=== PATIENT | male | born 1955 | race Caucasian/White ===

== ENCOUNTER → 2018-02-14 | Outpatient (CLI) | payer OTHER ==
--- NOTE | 2018-02-14 15:19 | XR ---
EXAMINATION TYPE: XR lumbosacral spine min 4V DATE OF EXAM: 02/14/2018 COMPARISON: NONE HISTORY: Low back pain TECHNIQUE: Five-view lumbar spine FINDINGS: Vertebral body alignment is normal. Disc heights are preserved. Vertebral body heights are preserved. Mild facet degenerative changes present L4-5 L5-S1. No spondylolytic defects are evident. IMPRESSION: 1. Mild facet degenerative change in an otherwise normal 5 view lumbar spine
--- NOTE | 2018-02-14 15:20 | XR ---
EXAMINATION TYPE: XR Hip Bilateral Complete DATE OF EXAM: 02/14/2018 COMPARISON: NONE HISTORY: Low back pain, bilateral hip pain TECHNIQUE: Bilateral hips 2 views each FINDINGS: Femoral heads articulate with the acetabulum. No acute fractures are evident. Joint spaces are preserved. IMPRESSION: 1. Normal bilateral hips.
== END | disposition home or self-care (01) ==
LOC: RADXRMAIN 14:37
PROVIDERS: ATTEND Nurse Practitioner Women's Health
DX: M47.816 Spondylosis without myelopathy or radiculopathy, lumbar region (principal); M25.551 Pain in right hip; M25.552 Pain in left hip
CPT/HCPCS: 72110; 73521

== ENCOUNTER → 2018-08-21 | Outpatient (CLI) | payer OTHER ==
--- NOTE | 2018-08-21 21:05 | MR ---
EXAMINATION TYPE: MR lumbar spine wo con DATE OF EXAM: 08/21/2018 COMPARISON: Plain film 02/14/2018 and prior lumbar MRI dated 10/15/2013 HISTORY: LBP, lt hip pain TECHNIQUE: Multiplanar, multisequence images of the lumbar spine were acquired. L1-L2: No central stenosis or foraminal encroachment. No evident disc herniation. L2-L3: Facet arthropathy is present with no significant central stenosis, foraminal encroachment, or sizable disc herniation. L3-L4: Posterior broad-based disc bulge causes only slight anterior mass effect on the thecal sac. No significant foraminal encroachment. There is some facet arthropathy change. L4-L5: Facet arthropathy is marked hypertrophic changes causing some posterior lateral mass effect on the thecal sac, trefoil appearance of the thecal sac. There is posterior broad-based disc bulge caus es slight anterior mass effect on the thecal sac. Circumferential extension of endplate disc complex encroaches somewhat on the foramina. No significant central stenosis. L5-S1: No significant central canal stenosis or foraminal encroachment. No spondylolysis. Only minima l posterior disc bulge contacts the anterior thecal sac. Lumbar segments are intact. No paraspinal masses are identified. Conus medullaris has a normal appe arance. Lumbar vertebral bodies show stable height, alignment, and bone marrow signal, there is multi level spondylosis with endplate discogenic marrow signal change. Loss of disc height signal is greate st at L3-4, L1-2 compatible with disc desiccation and degenerative disc disease. IMPRESSION: Degenerative disc disease and facet arthropathy are similar to prior MRI.
== END ==
LOC: RADMRIMAIN 16:46
PROVIDERS: ATTEND Family Medicine
DX: M51.36 Other intervertebral disc degeneration, lumbar region (principal); M46.96 Unspecified inflammatory spondylopathy, lumbar region
CPT/HCPCS: 72148

== ENCOUNTER → 2019-03-25 | Outpatient (CLI) | payer MEDICARE, OTHER ==
--- NOTE | 2019-03-25 08:40 | MR ---
EXAMINATION TYPE: MR lumbar spine wo con DATE OF EXAM: 03/25/2019 COMPARISON: 08/21/2018 HISTORY: Low back pain / Radiculopathy TECHNIQUE: T1 and T2 axial and sagittal images of the lumbar spine are submitted. FINDINGS: There is no abnormal signal seen within the visualized spinal cord or paraspinal soft tissu es. There is a left adrenal nodule. L1-L2: No central stenosis or foraminal encroachment. No evident disc herniation. Disc desiccation no nish. Chronic deformity of the inferior endplate L1. L2-L3: Facet arthropathy is present with no significant central stenosis, foraminal encroachment, or sizable disc herniation. L3-L4: Posterior broad-based disc bulge causes only slight anterior mass effect on the thecal sac. No significant foraminal encroachment. Stable facet arthropathy. L4-L5: Advanced facet arthropathy changes causing some posterior lateral mass effect on the thecal sa c, trefoil appearance of the thecal sac. There is posterior broad-based disc bulge causes slight ante rior mass effect on the thecal sac. Circumferential extension of endplate disc complex encroaches rashawn ewhat on the foramina. Mild canal central stenosis. L5-S1: No significant central canal stenosis or foraminal encroachment. No spondylolysis. Only minima l posterior disc bulge contacts the anterior thecal sac. Facet arthropathy noted. IMPRESSION: 1. Stable multilevel degenerative disc disease with multilevel facet arthropathy. Disc bulging and hy pertrophic changes L4-5 results in mild canal stenosis and bilateral foraminal encroachment. 2. Findings suggest a left adrenal nodule measuring 1.[address] scan is recommended.
== END | disposition home or self-care (01) ==
LOC: RADMRIMAIN 07:55
PROVIDERS: ATTEND Family Medicine
DX: M48.061 Spinal stenosis, lumbar region without neurogenic claudication (principal); M51.36 Other intervertebral disc degeneration, lumbar region; M51.86 Other intervertebral disc disorders, lumbar region; M46.96 Unspecified inflammatory spondylopathy, lumbar region
CPT/HCPCS: 72148

== ENCOUNTER → 2019-04-17 | Outpatient (CLI) | payer MEDICARE, OTHER ==
[2019-04-17 08:37] LABS: African American GFR (CKD) >90 (>60 ml/min/1.73 sqM); Blood Urea Nitrogen 15 mg/dL (9-20); Non-African American GFR(CKD) 83 (>60 ml/min/1.73 sqM)
--- NOTE | 2019-04-17 10:38 | CT ---
EXAMINATION TYPE: CT adrenal glands wo/w con ltd DATE OF EXAM: 04/17/2019 COMPARISON: MRI lumbar spine 03/25/2019 HISTORY: 63 year-old male left adrenal mass TECHNIQUE: Contiguous axial scanning of the abdomen before and after IV contrast. Coronal and sagitta l reconstructions performed. The 60 second scan was carried out through the pelvis. CT DLP: 1446 mGycm Automated exposure control for dose reduction was used. FINDINGS: Heart normal size without pericardial effusion. 1.7 cm nodular density medial anterior right base could represent a pulmonary nodule or small pericar diac cyst. Three-month follow-up of the chest recommended to reassess. Small hiatal hernia. No focal liver lesion or biliary ductal dilatation. Portal venous system is allen nt. Gallbladder, right adrenal gland, kidneys, spleen, and pancreas appear within normal limits. With attention to the left adrenal gland, no discrete nodule is identified. The patient's 03/25/2019 MR I is reviewed. Apparent nodule on the axial T2 series seems to correspond to artifact given the curre nt CT findings. No dilated small bowel, free fluid, or free air. Moderate atherosclerotic calcifications infrarenal abdominal aorta and common iliac arteries with mil d arthroscopic narrowing distal right common iliac artery. Normal appendix. Moderate stool burden. Sigmoid diverticulosis. No pericolonic inflammatory change. No mesenteric or retroperitoneal lymphadenopathy. Bladder urine distended with a posterior bladder wall diverticulum measuring 2.2 cm on the left. Pros carr gland is enlarged at 5.0 cm. Patulous bilateral inguinal canals. No abnormal fluid collection in the pelvis or pelvic lymphadenopathy. Pelvic phleboliths. Bones: Mild degenerative change at the hips. Facet arthropathy lower lumbar spine. IMPRESSION: 1. NO ADRENAL NODULE. THE 03/25/2019 MRI IS REVIEWED. IN LIGHT OF THE CURRENT CT FINDINGS, THE QUESTION ED NODULE ON AXIAL T2 SERIES IMAGE 30 SEEMS TO CORRESPOND TO ARTIFACT. 2. A 1.7 CM NODULE AT THE ANTERIOR RIGHT BASE COULD REPRESENT A PULMONARY NODULE OR PERICARDIAC CYST. THREE-MONTH FOLLOW-UP CONTRAST ENHANCED CT CHEST RECOMMENDED TO ENSURE STABILITY. 3. MODERATE STOOL. SMALL HIATAL HERNIA. SIGMOID DIVERTICULOSIS. LEFT POSTERIOR BLADDER WALL DIVERTICU LUM MEASURING 2.2 CM. MILD PROSTATOMEGALY AT 5.0 CM.
== END | disposition home or self-care (01) ==
LOC: RADCTMAIN 08:03
PROVIDERS: ATTEND Family Medicine
DX: K44.9 Diaphragmatic hernia without obstruction or gangrene (principal); K57.30 Diverticulosis of large intestine without perforation or abscess without bleeding; N40.0 Benign prostatic hyperplasia without lower urinary tract symptoms; N32.3 Diverticulum of bladder
CPT/HCPCS: 36415; 76380; 82565; 84520

== ENCOUNTER → 2019-11-07 | Outpatient (CLI) | payer MEDICARE ==
--- NOTE | 2019-11-07 17:15 | CT ---
EXAMINATION TYPE: CT chest w con DATE OF EXAM: 11/07/2019 COMPARISON: Chest x-ray 09/06/2016., CT abdomen 04/17/2019 HISTORY: Chest mass. CT DLP: 405.1 mGycm, Automated exposure control for dose reduction was used. CONTRAST: Performed injected with 100ml mL of Isovue 300. TECHNIQUE: Axial images were obtained at 5 mm thick sections. Reconstructed images are reviewed on abeo computer in the coronal plane. FINDINGS: Portion of the thyroid visualized is normal. No suspicious lung nodules or focal infiltrates are present. Faint density within the mediastinal fat adjacent to the right heart border is stable in size and appearance. No enlarged mediastinal or hilar adenopathy is evident. The ascending aorta diameter at the level o f the main pulmonary artery is 3.6 cm. The main pulmonary artery diameter at the bifurcation is 2.[address] sections are obtained through the upper abdomen. Abdomen is essentially unremarkable. IMPRESSIONS: 1. Stable right mediastinal mass. 2. CT chest is otherwise unremarkable.
== END | disposition home or self-care (01) ==
LOC: RADCTMAIN 15:26
PROVIDERS: ATTEND Family Medicine
DX: J98.59 Other diseases of mediastinum, not elsewhere classified (principal)
CPT/HCPCS: 82565; 84520; 71260; 36415; Q9967

== ENCOUNTER → 2020-12-04 | Outpatient (CLI) | payer MEDICARE ==
--- NOTE | 2020-12-04 11:49 | MR ---
EXAMINATION TYPE: MR brain wo/w con DATE OF EXAM: 12/04/2020 COMPARISON: HISTORY: visual disturbance TECHNIQUE: Multiplanar, multisequence images of the brain and brainstem is performed without and with IV contras t, utilizing 7.5 mL intravenous Gadavist . FINDINGS: Diffusion weighted images demonstrate no evidence of a recent infarct or other diffusion ab normality. Mild generalized degenerative change. There is a multiple focal areas of abnormal signal i n the white matter bilaterally which are nonspecific. Findings most typical remote ischemic change. Midline structures demonstrate normal morphology. The craniocervical junction appears within normal limits. Post contrast images demonstrate no abnormal enhancement. The dural venous sinuses appear pa tent. Changes of chronic sinusitis noted. Orbits symmetric in appearance. There is a small amount of fluid surrounding the optic nerves. Partially empty sella turcica IMPRESSION: 1. Nonspecific fluid surrounding the optic nerves greater on the left. Correlate with ocular exam exc lude papilledema or benign increased intracranial pressure. No orbital flattening. 2. Changes of severe chronic sinusitis. 3. Degenerative and nonspecific white matter changes most typical of remote ischemic change.
== END ==
LOC: RADMRIMAIN 08:26
PROVIDERS: ATTEND Otolaryngology
DX: J32.9 Chronic sinusitis, unspecified (principal); R90.82 White matter disease, unspecified
CPT/HCPCS: 70553; A9585

== ENCOUNTER → 2020-12-30 | Outpatient (CLI) | payer MEDICARE ==
[2020-12-30 14:25] VITALS: BP 145/84; PULSE 73; RESP 16; TEMP 98.2
--- NOTE | 2020-12-30 14:51 | P.PAINCN ---
History of Present Illness - Reason for Consult Consult date: 12/30/20 - History of Present Illness This is 65 years old male with a chronic history of severe, low back pain started more than 10 years ago and intensity of the pain is increased over time, patient reported that he does a lot of heavy lifting and repetitive movement at work, he denies any history of trauma, no history of accident, the pain is localized in the low back area, with occasional radiation to the posterior lateral aspect of his legs, he denies any motor or sensory deficit, no fever or night sweats and there is no change in the bowel movement or urination. Patient using pain medication with minimal relief he denies any side effects of the medication Past Medical History Past Medical History: GERD/Reflux Additional Past Medical History / Comment(s): BACK PAIN History of Any Multi-Drug Resistant Organisms: None Reported Past Surgical History: Orthopedic Surgery Additional Past Surgical History / Comment(s): sinus SX. BILAT ROTATOR CUFF REPAIR. RT KNEE. COLONOSCOPY. RT CATARACT REMOVED Additional Past Anesthesia/Blood Transfusion Reaction / Comm: SLOW TO COME OUT OF ANESTHESIA Past Psychological History: No Psychological Hx Reported Smoking Status: Former smoker Past Alcohol Use History: Occasional Past Drug Use History: None Reported - Past Family History Brother(s) Family Medical History: Cancer Medications and Allergies Home Medications Medication Instructions Recorded Confirmed Type HYDROcodone/APAP 10-325MG [[place] 0.5 tab PO BID PRN 04/29/16 12/29/20 History 10-325] Ibuprofen [Motrin] 300 mg PO BID 04/29/16 12/29/20 History Allergies Allergy/AdvReac Type Severity Reaction Status Date / Time No Known Allergies Allergy Verified 04/29/16 10:45 Physical Exam Vitals: Vital Signs Temp Pulse Resp BP Pulse Ox 12/30/20 14:22 98.2 F 73 16 145/84 97 Intake and Output 12/29/20 12/30/20 12/30/20 22:59 06:59 14:59 Other: Weight 79.379 kg Physical Examinations : -Constitutiona : Cooperative , not in acute distress . -HEENT : nech : supple , no Lymphadenopathy , normal thyroid size . : eyes : no ptosis , no icterus, no photophobia . - neurologic : Cranial nerve II to XII intact , no focal neurological deffecit . -psychatric : alert , oriented X 3 , appropriate affect , intact judgment and insight . -Lymphatic : no Lymphadenopathy . - musculoskeltal : Lumber spine moter stegnth lower extremities ,thigh and legs 5/5 Right side , 5/5 Left side Normal sensation in the lower extremities deep tendon reflexes : normal Knee Jerk , normal ankle Jerk lumber facet Loading Test =positive Right , positive Left Range of motion of the lumbar spine Flexion 30 degrees, extension 10 degrees strait leg raising test = negative bilaterally Fabere test= negative bilaterally mild tenderness over the Sacroiliac joint on the Right , and Left sides Results Comments: MRI of the lumbar spine= multilevel lumbar degenerative disc disease, multilevel lumbar spondylosis with lumbar facet arthropathy Noreen the brain= reviewed= Assessment and Plan Plan: Assessment and plan=1-lumbar degenerative disc disease. 2-lumbar spondylosis with lumbar facet arthropathy without myelopathy. he would be good candidate to have diagnostic medial branch block lumbar area at L3, L4, L5 bilaterally Time with Patient: Greater than 30 PQRS Measure Charge Sheet Measure #130: Documentation of Current Meds in Medical Chart: Patient's medications documented in chart Measure #226: Tobacco Use: Screen & Cessation Intervention: Pt not a tobacco user Measure #111: Pneumonia Vaccination: Pneumococcal vaccine NOT administered or previously given Measure #47: Advance Care Plan: Advance care planning discussed & documented, pt chose/unable to give Measure #412: Opioid Treatment Agreement: No documentation of signed opioid treatment agreement Measure #408: Opioid Therapy Follow-up Evaluation: Patient had NO f/u eval minimum every 3 months during opioid therapy Measure #317: Preventitive Care & Scrn High Bld Press & F/U: Pre-hypertensive or hypertensive BP documented, pt will f/u with PCP Measure #128: Body Mass Index (BMI) Screening & Follow-up: BMI documented ABOVE normal parameters - f/u documented Measure #131: Pain Assessment & Follow-up: Pain positive & plan documented, Follow-up scheduled PQRS Narrative: Smoking Status Never smoker Blood Pressure 145/84 Pain Intensity [Lower Back] 5 Scale Used Numeric (1 - 10) Hx Alcohol Use (MH) Yes Home Medications: Ambulatory Orders HYDROcodone/APAP 10-325MG [[place] 10-325] 0.5 tab PO BID PRN 04/29/16 Ibuprofen [Motrin] 300 mg PO BID 04/29/16
== END ==
LOC: PNWHC3 13:56
PROVIDERS: ATTEND Specialist
DX: M51.36 Other intervertebral disc degeneration, lumbar region (principal); M47.816 Spondylosis without myelopathy or radiculopathy, lumbar region; K21.9 Gastro-esophageal reflux disease without esophagitis; Z87.891 Personal history of nicotine dependence
CPT/HCPCS: 99211

== ENCOUNTER 2021-01-05 09:13 | Day surgery (SDC) | payer MEDICARE ==
[~2021-01-05 09:13] MED LIST: LACTATED RINGERS 1,000 ML IV SCH
[2021-01-05 09:31] VITALS: TEMP 97.7
[2021-01-05] MEDS ORDERED: fentaNYL (PF) 50 MCG/ML 2 ML AMP ONE (09:41)
[2021-01-05] MEDS ORDERED: MIDAZOLAM 2 MG/2 ML VIAL ONE (09:41)
[2021-01-05] MEDS ORDERED: IV FLUID CONTINUATION 850 ML IV ONE ×2 (10:06)
--- NOTE | 2021-01-05 10:07 | P.PCN ---
Date of Procedure: 01/05/21 Procedure(s) Performed: Preoperative diagnosis: Demyelinating disease Post operative diagnoses: Demyelinating disease Procedure= lumbar puncture Anesthesia = moderate sedation with Versed 2 mg and fentanyl 100 g Condition: stable Complication: none. Description of the procedure procedure risk and benefits discussed with the patient and family, consent signed. Patient taken to the procedure area , monitors applied and sedation was given to decrease the patient's anxiety , then placed in left lateral position , back prepped with chlorhexidine 3 times been local infiltration of the skin and subcutaneous tissue with lidocaine 1% 3 mL for skin and subcu interstitial frustrations at L4- 5 levels then 22-gauge Quincke-type needle advanced slowly at L4- 5 interlaminar space there was positive cerebrospinal fluid which was clear, no heme, no paresthesia ,total of 15 ML of clear cerebrospinal fluid collected in 4 different tubes 3-5 mL in each, then the needle removed and a Band-Aid applied and patient tolerated the procedure well without any complications. opening pressure= 21 cm of water. Volume removed= 15 mL of clear cerebrospinal fluid. Closing pressure= 12 cm of water.
[2021-01-05 10:50] VITALS: RESP 18
[2021-01-05 10:56] LABS: Glucose,CSF 52 mg/dL (40-70); Total Protein,CSF 55 mg/dL (12-60)
[2021-01-05 11:02] LABS: T4, Free (Free Thyroxine) 1.06 ng/dL (0.78-2.19)
[2021-01-05 11:21] VITALS: BP 117/75; PULSE 67
[2021-01-05 15:43] LABS: Appearance,CSF Clear; CSF Tube Number 4; Nucleated Cells, CSF 0 u/L (0-5); Red Blood Cell,CSF 0 u/L (0-10)
[2021-01-06 02:39] LABS: DNA Double-Stranded NEGATIVE (NEGATIVE)
[2021-01-06 02:40] LABS: Anti-Smith Ab Interp NEGATIVE (NEGATIVE)
[2021-01-06 08:45] LABS: Angiotensin-1 Converting Enz. 67 U/L (8-52)
[2021-01-07 10:58] LABS: IgG - CSF 2.2 mg/dL (0.0 - 3.4); IgG/Albumin Index (CSF) 0.47 (0.00 - 0.77); Immunoglobulin G 870 mg/dL (700 - 1600)
[2021-01-08 10:53] LABS: VDRL, Qualitative CSF Nonreactive (Nonreactive)
== END 2021-01-05 11:30 | disposition home or self-care (01) ==
LOC: ORPAIN 09:13
PROVIDERS: ATTEND Specialist
DX: G37.9 Demyelinating disease of central nervous system, unspecified (principal); G93.2 Benign intracranial hypertension
CPT/HCPCS: 86592; 86235 ×3; 84439; 88108; 84157; 82945; 82040; 82042; 82784; 83916; 82164 ×2; 83873; 84443; 84450; 84460; 86431; 89050; 86618; 86780; 86038; 86225; 87801; 62270; J2250; J3010; 99152

== ENCOUNTER 2021-01-29 09:39 | Day surgery (SDC) | payer MEDICARE ==
[2021-01-27 11:52] VITALS: BMI 25.2
[2021-01-29 10:03] VITALS: TEMP 97.7
[2021-01-29] MEDS ORDERED: LACTATED RINGERS 950 ML IV ONE (10:09)
[2021-01-29] MEDS ORDERED: LIDOCAINE 1% INJ 10MG/ML (20 ML MDV) ONE (10:11)
[2021-01-29] MEDS ORDERED: IOPAMIDOL M200 10 ML VIAL ONE (10:11)
[2021-01-29] MEDS ORDERED: ROPIVACAINE 5MG/ML 20ML VIAL ONE (10:11)
[2021-01-29] MEDS ORDERED: TRIAMCINOLONE ACETONIDE 40 MG/ML 1 ML VIAL ONE (10:11)
[2021-01-29] MEDS ORDERED: MIDAZOLAM 2 MG/2 ML VIAL ONE (10:11)
[2021-01-29] MEDS ORDERED: fentaNYL (PF) 50 MCG/ML 2 ML AMP ONE (10:11)
--- NOTE | 2021-01-29 10:28 | P.PCN ---
Date of Procedure: 01/29/21 Description of Procedure: PREOPERATIVE DIAGNOSIS : 1- Lumbar spondylosis with Facet Arthropathy without myelopathy . 2- Lumber degenerative disc disease POSTOPERATIVE DIAGNOSIS: 1- Lumbar spondylosis with Facet Arthropathy without myelopathy . 2- Lumber degenerative disc disease PROCEDURE: Diagnostic bilateral L3 , L4 , and L5 medial branch block under fluoroscopy guidance(fluoroscopy images available in the radiology Department ) ( To target the facet joint between bilateral L4-5 , and L5-S1 ) ANESTHESIA:, Monitored anesthesia care as per anesthesia department.. EBL: Minimal COMPLICATION: None PROCEDURE INDICATION: Chronic low back pain secondary to Facet arthropathy unresponsive to conservative treatment. PROCEDURE DESCRIPTION: the patient was seen and identified in the preop holding area , risks and benefits and possible complications of the procedure and alternative were discussed with the patient, and the patient agreed to proceed with the procedure and signed the consent and vital signs monitored during the procedure and fluoroscopy was used to maximize the benefit and accuracy of the needle placement, and sedation was given to decrease patient anxiety, patient was taken to the procedure room and placed in prone position vital signs monitored in the back prepped with chlorhexidine X3 then under strict sterile technique using a right oblique fluoroscopy ,the junction of the transverse process and the superior articulating process of the right L3 , L4 , and L5 vertebra which corresponding to the fluoroscopy image of the eye of the Ab dog on the block side for the medial branches and subsequently , after local infiltration of skin and subcu tissues with Ropivacaine 0.5 % , one mL at each level ,then 25-gauge Quincke-type needles , 3 needle was used , each one of them placed at the junction of the base of the transverse process and the superior articular process at the appropriate level, and the needle was advanced until the periosteum contacted, needle placement confirmed with AP oblique and lateral view and after appropriate needle placement confirmed, and after negative aspiration for heme and CSF and there was no paresthesia 1-1/2 mL of Ropivacaine 0.5% mixed with 20 mg Kenalog , then half mL injected at each level after negative aspiration the needle subsequently removed and the same procedure repeated for the left side at left side at L3 , L4 and L5 levels. At the end of the procedure and the needles removed and a bandage applied after the skin was cleaned the cleaning solution patient taken to recovery room in stable condition and monitors in the recovery room for 20-30 minutes and discharged home in stable condition after discharge criteria met and patient will follow up with the pain clinic in 2-4 weeks
[2021-01-29] MEDS ORDERED: IV FLUID CONTINUATION 900 ML IV ONE (10:33)
[2021-01-29 11:03] VITALS: BP 117/78; PULSE 78; RESP 18
--- NOTE | 2021-01-29 11:37 | FL ---
Fluoroscopy History: PAIN 5 sec FL
== END 2021-01-29 11:37 | disposition home or self-care (01) ==
LOC: ORPAIN 09:39
PROVIDERS: ATTEND Anesthesiology
DX: G89.29 Other chronic pain (principal); M47.816 Spondylosis without myelopathy or radiculopathy, lumbar region; M51.36 Other intervertebral disc degeneration, lumbar region; Z79.1 Long term (current) use of non-steroidal anti-inflammatories (NSAID); Z79.891 Long term (current) use of opiate analgesic
CPT/HCPCS: 64493; 64494; J2250; J3301; J2001; J3010; Q9966; J2795

== ENCOUNTER → 2021-02-17 | Outpatient (CLI) | payer MEDICARE ==
[2021-02-17 09:41] VITALS: BP 122/80; PULSE 81; RESP 16; TEMP 98
--- NOTE | 2021-02-17 10:11 | P.PN ---
Subjective Progress Note Date: 02/17/21 This is a 65-year-old gentleman with history of chronic lower back pain mostly on the left side of his back with no radiation to the lower extremities however the patient states that he has numbness and the right leg beneath the knee going down to the right foot and she started after an intramuscular injection in the buttock area. He had a diagnostic lumbar medial branch block recently which gave him more than 80% of pain relief which lasted for about 2 days after the procedure. During this time the patient did not have to use his [place] for the pain. Patient denies new-onset weakness, bowel/bladder incontinence, or any other signs or symptoms of cauda equina syndrome. There are no signs of acute intoxication, and no indications of medication diversion or overuse. In addition to above, 13-point review of systems is also negative for chest pain, shortness of breath, changes in vision, changes in hearing, new onset weakness, abdominal pain, diarrhea, extreme fatigue, malaise, fever, skin changes, homicidal or suicidal ideation, or bowel or bladder incontinence. Vital Signs: Reviewed in EMR Gen: AAOx3, NAD HEENT: PERRLA,hearing grossly normal Pulm: resp unlabored Neck: supple, trachea midline Neuro exam of the lower extremities: Normal muscle strength Straight leg raising test: Eduard's test: Range of motion of the lumbar spine: Normal Facet loading test: Tenderness in the paravertebral musculature: Positive bilaterally in the lumbar area Neuro: CN II-XII grossly intact, Imaging: Reviewed in EMR/chart Assessment: Lumbar spondylosis without myelopathy Lumbar DDD Plan: 1. Explanation: Opioid and psychological risk scores were reviewed. Diagnoses, prognoses, and multiple treatment options including but not limited to physical therapy, interventional therapies, adjuvant medical therapies, narcotic medication therapies, and surgery were discussed with the patient and all questions were answered to the patient's satisfaction. 2. Opioid agreement: Signed with the patient and the patient is warned not to use opioids while driving or before driving and not to combine opioids with benzodiazepines or alcohol. 3. Counseling: The patient was counseled extensively on SMOKING CESSATION, BODY MASS INDEX, EXERCISE. Specifically, the patient was instructed regarding the importance of smoking cessation, obesity, and exercise in the context of both chronic pain and overall health. 4. Procedures: Scheduled for the second lumbar diagnostic medial branch block 5. Consultations: None 6. Investigations: None 7. Medications: None prescribed fluoroscopy clinic 8. Disposition: Proceed with the above-mentioned procedure as soon as possible 9. Maps were reviewed and were appropriate. Objective - Vital Signs Vital signs: Vital Signs Temp 98.0 F 02/17/21 09:37 Pulse 81 02/17/21 09:37 Resp 16 02/17/21 09:37 BP 122/80 02/17/21 09:37 Pulse Ox 96 02/17/21 09:37
== END ==
LOC: PNWHC3 09:15
PROVIDERS: ATTEND Anesthesiology
DX: M51.36 Other intervertebral disc degeneration, lumbar region (principal); M47.816 Spondylosis without myelopathy or radiculopathy, lumbar region
CPT/HCPCS: 99211

== ENCOUNTER 2021-03-12 09:36 | Day surgery (SDC) | payer MEDICARE ==
[2021-03-10 12:43] VITALS: BMI 24.4
[2021-03-12 09:58] VITALS: RESP 18; TEMP 97.1
[2021-03-12] MEDS: LACTATED RINGERS 1,000 ML IV SCH ×2 (10:08→10:33)
[2021-03-12] MEDS ORDERED: fentaNYL (PF) 50 MCG/ML 2 ML AMP ONE (10:35)
[2021-03-12] MEDS ORDERED: methylPREDNISolone ACETATE 40 MG/ML 1 ML VIAL ONE (10:35)
[2021-03-12] MEDS ORDERED: ROPIVACAINE 5MG/ML 20ML VIAL ONE (10:35)
[2021-03-12] MEDS ORDERED: MIDAZOLAM 2 MG/2 ML VIAL ONE (10:35)
--- NOTE | 2021-03-12 10:53 | P.PCN ---
Date of Procedure: 03/12/21 Procedure(s) Performed: PREOPERATIVE DIAGNOSIS : 1- Lumbar spondylosis with Facet Arthropathy without myelopathy . 2- Lumber degenerative disc disease POSTOPERATIVE DIAGNOSIS: 1- Lumbar spondylosis with Facet Arthropathy without myelopathy . 2- Lumber degenerative disc disease PROCEDURE: Diagnostic bilateral L3 , L4 , and L5 medial branch block under fluoroscopy guidance(fluoroscopy images available in the radiology Department ) ( To target the facet joint between bilateral L4-5 , and L5-S1 ) ANESTHESIA:,monitered anesthesia care as per anesthesia depatrment. EBL: Minimal COMPLICATION: None PROCEDURE INDICATION: Chronic low back pain secondary to Facet arthropathy unresponsive to conservative treatment. PROCEDURE DESCRIPTION: the patient was seen and identified in the preop holding area , risks and benefits and possible complications of the procedure and alternative were discussed with the patient, and the patient agreed to proceed with the procedure and signed the consent and vital signs monitored during the procedure and fluoroscopy was used to maximize the benefit and accuracy of the needle placement, and sedation was given to decrease patient anxiety, patient was taken to the procedure room and placed in prone position vital signs monitored in the back prepped with chlorhexidine X3 then under strict sterile technique using a right oblique fluoroscopy ,the junction of the transverse process and the superior articulating process of the right L3 , L4 , and L5 vertebra which corresponding to the fluoroscopy image of the eye of the Ab dog on the block side for the medial branches and subsequently , after local infiltration of skin and subcu tissuies with Ropivacaine 0.5 % , one mL at each level ,then 22-gauge Quincke-type needles , 3 needle was used , each one of them placed at the junction of the base of the transverse process and the superior articular process at the appropriate level, and the needle was advanced until the periosteum contacted, needle placement confirmed with AP oblique and lateral view and after appropriate needle placement confirmed, and after negative aspiration for heme and CSF and there was no paresthesia 1-1/2 mL of Ropivacaine 0.5% mixed with 20 mg Depo-Medrol , then half mL injected at each level after negative aspiration the needle subsequently removed and the same procedure repeated for the left side at left side at L3 , L4 and L5 levels. At the end of the procedure and the needles removed and a bandage applied after the skin was cleaned the cleaning solution patient taken to recovery room in stable condition and monitors in the recovery room for 20-30 minutes and discharged home in stable condition after discharge criteria met and patient will follow up with the pain clinic in 2-4 weeks
[2021-03-12] MEDS ORDERED: IV FLUID CONTINUATION 1,000 ML IV ONE (10:54)
--- NOTE | 2021-03-12 11:03 | FL ---
Fluoroscopy INDICATION: Pain FINDINGS: Fluoroscopy time: 8 seconds. Images obtained: 4. IMPRESSIONS: 1. Documentation of fluoroscopy.
[2021-03-12 11:15] VITALS: BP 127/78; PULSE 78
== END 2021-03-12 11:32 | disposition home or self-care (01) ==
LOC: ORPAIN 09:36
PROVIDERS: ATTEND Specialist
DX: G89.29 Other chronic pain (principal); M47.816 Spondylosis without myelopathy or radiculopathy, lumbar region; M51.36 Other intervertebral disc degeneration, lumbar region; Z79.891 Long term (current) use of opiate analgesic; Z79.899 Other long term (current) drug therapy
CPT/HCPCS: 64493; 64494; J2250; J1030; J3010; J2795

== ENCOUNTER → 2021-04-07 | Outpatient (CLI) | payer MEDICARE ==
[2021-04-07 08:56] VITALS: BP 132/83; PULSE 85; RESP 18; TEMP 98
--- NOTE | 2021-04-07 09:00 | P.PAINPG ---
Subjective Progress Note Date: 04/07/21 This is a 65-year-old gentleman with history of chronic lower back pain mostly on the left side of his back with no radiation to the lower extremities however the patient states that he has numbness and the right leg beneath the knee going down to the right foot and she started after an intramuscular injection in the buttock area. We have done bilateral L4-5 L5-S1 MBB. First one gave him more than 80% of pain relief which lasted for about 2 days after the procedure. During this time the patient did not have to use his [place] for the pain. he is here for followup after his second injection. He noted that he had about 80% relief from the second injection. He had a lot of questions about the radiofrequency ablation, specifically if it involves steroid injections versus possible permanent damage to the sciatic nerve. I talked to the patient about the fact we do not use steroids with radiofrequency ablation and that we do our procedures. under live x-ray guidance and we do motor testing to ensure that we are not near motor nerve. He is concerned about this because in the past to get a Toradol injection in his right buttock which she said when he decided nerve and he has significant back and leg pain since then. Patient denies new-onset weakness, bowel/bladder incontinence, or any other signs or symptoms of cauda equina syndrome. There are no signs of acute intoxication, and no indications of medication diversion or overuse. In addition to above, 13-point review of systems is also negative for chest pain, shortness of breath, changes in vision, changes in hearing, new onset weakness, abdominal pain, diarrhea, extreme fatigue, malaise, fever, skin changes, homicidal or suicidal ideation, or bowel or bladder incontinence. Vital Signs: Reviewed in EMR Gen: AAOx3, NAD HEENT: PERRLA,hearing grossly normal Pulm: resp unlabored Neck: supple, trachea midline Neuro exam of the lower extremities: Normal muscle strength Straight leg raising test: Eduard's test: Range of motion of the lumbar spine: Normal Facet loading test: Tenderness in the paravertebral musculature: Positive bilaterally in the lumbar area Neuro: CN II-XII grossly intact Imaging: Reviewed in EMR/chart Assessment: Lumbar spondylosis without myelopathy Lumbar DDD Plan: 1. Explanation: Opioid and psychological risk scores were reviewed. Diagnoses, prognoses, and multiple treatment options including but not limited to physical therapy, interventional therapies, adjuvant medical therapies, narcotic medication therapies, and surgery were discussed with the patient and all questions were answered to the patient's satisfaction. 2. Opioid agreement: Signed with the patient and the patient is warned not to use opioids while driving or before driving and not to combine opioids with benzodiazepines or alcohol. 3. Counseling: None today 4. Procedures: Scheduled for the RFA bilateral L4-5 and L5-S1 5. Consultations: None 6. Investigations: None 7. Medications: None prescribed fluoroscopy clinic 8. Disposition: Proceed with the above-mentioned procedure as soon as possible 9. Maps were reviewed and were appropriate. I have spent 28 minutes on review of the records, review of the imaging available, [id number] interaction with the patient, medication management, follow-up care coordination and record creation. PQRS Measure Charge Sheet PQRS Narrative: Smoking Status Never smoker Home Medications: Ambulatory Orders HYDROcodone/APAP 10-325MG [[place] 10-325] 0.5 tab PO TID PRN 04/29/16 Ibuprofen [Motrin] 400 mg PO TID PRN 04/29/16 Omeprazole 20 mg PO QAM 03/10/21 Triamcinolone Acetonide [Nasacort] 1 spray EA NOSTRIL BID PRN 03/10/21 Controlled Substance Measures - Controlled Substance Measures Is patient prescribed a controlled substance at discharge?: No
== END ==
LOC: PNWHC3 08:39
PROVIDERS: ATTEND Anesthesiology
DX: M47.816 Spondylosis without myelopathy or radiculopathy, lumbar region (principal); M51.36 Other intervertebral disc degeneration, lumbar region
CPT/HCPCS: 99211

== ENCOUNTER 2021-05-07 11:42 | Day surgery (SDC) | payer MEDICARE ==
[2021-05-05 08:35] VITALS: BMI 24.4
[2021-05-07 12:04] VITALS: TEMP 97.7
[2021-05-07] MEDS: LACTATED RINGERS 1,000 ML IV SCH ×2 (12:08→12:09)
[2021-05-07] MEDS ORDERED: MIDAZOLAM 2 MG/2 ML VIAL ONE (12:11)
[2021-05-07] MEDS ORDERED: ROPIVACAINE 5MG/ML 20ML VIAL ONE (12:11)
[2021-05-07] MEDS ORDERED: methylPREDNISolone ACETATE 40 MG/ML 1 ML VIAL ONE (12:11)
[2021-05-07] MEDS ORDERED: fentaNYL (PF) 50 MCG/ML 2 ML AMP ONE (12:11)
--- NOTE | 2021-05-07 12:42 | P.PCN ---
Date of Procedure: 05/07/21 Procedure(s) Performed: PREOPERATIVE DIAGNOSIS: 1-Lumbar Spondylosis with Facet Arthropathy without myelopathy. 2- Lumber degenerative disc disease. POSTOPERATIVE DIAGNOSIS: 1- Lumbar Spondylosis with Facet Arthropathy without myelopathy. 2- Lumber degenerative disc disease. PROCEDURES : Bilateral Radiofrequency thermocoagulation, L3 , L4 , and L5 medial branch, with fluoroscopic guidance (fluoroscopy images available in the radiology department) ( to denervate the facet joint at bilateral L4-5 ,and L5-S1 levels ). ANESTHESIA: monitered anesthesia care, as per anesthesia department . EBL: Minimal PROCEDURE INDICATION: The patient with low back pain secondary to lumbar facet arthropathy who had more than 50% relief of her pain with previous diagnostic lumbar medial branch block with bupivacaine. PROCEDURE DESCRIPTION / TECHNIQUE: The patient was seen and identified in the preoperative area. Risks, benefits, complications, including but not limited to risk of infection ,bleeding , allergic reactions to the medications and no complete pain releife , and alternatives were discussed with the patient, the patient agreed to proceed with the procedure and signed the consent. IV was started. Vital signs remained stable throughout the procedure. Patient was taken to the OR and time out was completed. The patient was placed in the prone position on the procedure table. The lumber area was prepped and draped in the usual sterile fashion. . Vital signs were closely monitored during the procedure .IV sedation was used during the procedure to decrease patients anxiety. Using AP and then oblique fluoroscopy, the ``eye of the Ab ibarra c orresponding to the connection between the superior and transverse articular processes of right L3, L4, and L5 were identified, marked, and localized with 1% lidocaine. Subsequently, a 18 -ej radiofrequency cannula with a 10- mm active tip was advanced guided by fluoroscopy to each of the``eyes of the Ab dog at right L3, L4, and L5. Each site then underwent sensory testing at 50 Hz and 0 to 1 volt and motor testing at 2.5 Hz and 0 to 3 volt with local stimulation, but no radicular symptoms down the legs. Thereafter each sites underwent radiofrequency thermocoagulation at 80 degrees celsius for 90 seconds after injecting 0.5 ml of PF Ropivacaine 1ml, then after the thermocoagulation done , 1 ml of the block solution containing Depo-Medrol 20 mg and 3 ml of Ropivacaine 0.5% was injected at the right L3 , L4 , and L5 , levels after negative aspiration of CSF and blood and with no paresthesias. Cannulas were retracted while injecting lidocaine 1% until the needle is out. The same procedure was repeated at the level of Left L3, L4, and L5 levels. At the end of the procedure, the skin was cleansed and bandages were applied. COMPLICATIONS: No acute complications. DISPOSITION / PLANS: The patient was placed in a supine position and transferred to the recovery area in a stable condition for observation and was discharged from the recovery room after meeting discharge criteria. Home discharge instructions given to the patient by the staff. The patient was reexamined prior to discharge. The patient will schedule a follow up in the clinic in 2-4 weeks.
[2021-05-07] MEDS ORDERED: IV FLUID CONTINUATION 1,000 ML IV ONE (12:44)
--- NOTE | 2021-05-07 12:47 | FL ---
EXAMINATION TYPE: FL guided pain mgmt statistic DATE OF EXAM: 05/07/2021 CLINICAL HISTORY: Low back pain. TECHNIQUE: Fluoroscopy. COMPARISON: None. FINDINGS: Fluoroscopic guidance was provided during pain relief procedure performed by Dr. Zapien . A total of 12 seconds of fluoroscopic time was utilized during the procedure and 5 spot images are acquired. Images acquired shows needle localization at several levels in the lumbar spine. IMPRESSION: As Above.
[2021-05-07 12:58] VITALS: BP 126/77; PULSE 73; RESP 14
== END 2021-05-07 14:00 | disposition home or self-care (01) ==
LOC: ORPAIN 11:42
PROVIDERS: ATTEND Specialist
DX: M47.816 Spondylosis without myelopathy or radiculopathy, lumbar region (principal)
CPT/HCPCS: 64635; 64636 ×2; J2250; J1030; J3010; J2795

== ENCOUNTER → 2021-05-17 | Outpatient (CLI) | payer MEDICARE ==
[2021-05-17 08:02] VITALS: BP 144/79; PULSE 87; RESP 18; TEMP 98.1
--- NOTE | 2021-05-17 08:15 | P.PAINPG ---
Subjective Progress Note Date: 05/17/21 This is a 65-year-old gentleman with history of chronic lower back pain mostly on the left side of his back with no radiation to the lower extremities however the patient states that he has numbness and the right leg beneath the knee going down to the right foot and she started after an intramuscular injection in the buttock area. In the last visit. Many questions about proceeding with radiofrequency ablation specifically if it involves steroid. He is also concerned about any injection in general given that he once got a Toradol injection and after that had back and leg pain. We recently performed bilateral radiofrequency ablation at L4-L5 and L5-S1. Patient said that he got very little relief from the injection. His pain complaints are left low buttock pain with occasional radiation into the posterior thigh stopping above the knee. Very rarely it will go past the knee where he feels a significant muscle cramp in the left calf. Pain is made worse with sitting and rising from a seated position and really any physical activity. There is really nothing that makes the pain better. Patient had many questions about plan of care. Patient denies new-onset weakness, bowel/bladder incontinence, or any other signs or symptoms of cauda equina syndrome. There are no signs of acute intoxication, and no indications of medication diversion or overuse. In addition to above, 13-point review of systems is also negative for chest pain, shortness of breath, changes in vision, changes in hearing, new onset weakness, abdominal pain, diarrhea, extreme fatigue, malaise, fever, skin changes, homicidal or suicidal ideation, or bowel or bladder incontinence. Vital Signs: Reviewed in EMR Gen: AAOx3, NAD HEENT: PERRLA,hearing grossly normal Pulm: resp unlabored Neck: supple, trachea midline Neuro exam of the lower extremities: Normal muscle strength Straight leg raising test: negative Eduard's test: positive L side Gaenslens test: positive L side Thigh compression test: positive L side Range of motion of the lumbar spine: Normal Facet loading test: positive bilaterally Tenderness in the paravertebral musculature: Positive bilaterally in the lumbar area Neuro: CN II-XII grossly intact Imaging: LumbarMRI 2019 L4-L5 showed advanced facet arthropathy with some posterior-lateral mass effect on the thecal sac and a trefoil appearance of the thecal sac. There is mild central canal stenosis. Assessment: Lumbar spondylosis without myelopathy Lumbar DDD Plan: - At this time the patient would like to see if his pain gets better on its own. We had a long discussion about his plan of care, I mentioned focusing on low back and core strengthening. If he does call that we can schedule him for a left-sided sacroiliac joint injection. I have spent 32 minutes on review of the records, review of the imaging available, [id number]-[id number] interaction with the patient, medication management, follow-up care coordination and record creation. PQRS Measure Charge Sheet PQRS Narrative: Smoking Status Never smoker Hx Alcohol Use (MH) Yes: occasional Home Medications: Ambulatory Orders HYDROcodone/APAP 10-325MG [[place] 10-325] 0.5 tab PO DAILY 04/29/16 Ibuprofen [Motrin] 400 mg PO TID PRN 04/29/16 Omeprazole 20 mg PO QAM PRN 03/10/21 Triamcinolone Acetonide [Nasacort] 1 spray EA NOSTRIL BID PRN 03/10/21 Controlled Substance Measures - Controlled Substance Measures Is patient prescribed a controlled substance at discharge?: No
== END ==
LOC: PNWHC3 07:46
PROVIDERS: ATTEND Anesthesiology
DX: M47.816 Spondylosis without myelopathy or radiculopathy, lumbar region (principal); M51.36 Other intervertebral disc degeneration, lumbar region
CPT/HCPCS: 99211

== ENCOUNTER → 2023-12-26 | Outpatient (CLI) | payer MEDICARE ==
[2023-12-26 16:27] LABS: Basophils # (A) 0.05 X 10*3/uL (0.00-0.10); Eosinophils # (A) 0.13 X 10*3/uL (0.04-0.35); Eosinophils % (A) 2.6 %; HCT 41.6 % (39.6-50.0); HGB 14.4 g/dL (13.0-17.0); Lymphocytes # (A) 1.65 X 10*3/uL (0.90-5.00); Lymphocytes % (A) 33.2 %; MCH 31.6 pg (27.0-32.0); MCHC 34.6 g/dL (32.0-37.0); MCV 91.4 FL (80.0-97.0); Mean Platelet Volume 10.3 FL (9.5-12.2); Monocytes # (A) 0.52 X 10*3/uL (0.20-1.00); Monocytes % (A) 10.5 %; NRBC Per 100 WBC 0 X 10*3/uL (0.00-0.01); Neutrophils # (A) 2.57 X 10*3/uL (1.80-7.70); Neutrophils % (A) 51.7 %; Platelet Count 209 X 10*3/uL (140-440); RBC 4.55 X 10*6/uL (4.40-5.60); RDW 12.2 % (11.5-14.5); WBC 4.97 X 10*3/uL (4.50-10.00)
== END | disposition home or self-care (01) ==
LOC: LABPAT 10:50
PROVIDERS: ATTEND Surgery
DX: Z01.818 Encounter for other preprocedural examination (principal); K40.20 Bilateral inguinal hernia, without obstruction or gangrene, not specified as recurrent; R94.31 Abnormal electrocardiogram [ECG] [EKG]
CPT/HCPCS: 36415; 85025; 86850; 86900; 86901; 93005

== ENCOUNTER 2024-01-01 07:16 | Day surgery (SDC) | payer MEDICARE ==
[2023-12-27 10:54] VITALS: BMI 25.1
[~2024-01-01 07:16] MED LIST changes: -LACTATED RINGERS 1,000 ML IV SCH; +LIDOCAINE 1% (10MG/ML) FOR IV START INTRADERMA PRN; +droPERidol 5 MG/2 ML VIAL IVP ONE
--- NOTE | 2024-01-01 07:20 | P.GSHP ---
History of Present Illness H&P Date: 01/01/24 Chief Complaint: Bilateral inguinal hernia 68-year-old male here today for elective repair bilateral inguinal hernia. Patient has had these hernias for many years. Lifts heavy objects at work. Left side greater than right. Mild soreness. Past Medical History Past Medical History: GERD/Reflux, Osteoarthritis (OA), Prostate Disorder Additional Past Medical History / Comment(s): jasper inguinal hernias,hx chronic lower back and shoulder pain,enlarged prostate, steroid use recently in [place] History of Any Multi-Drug Resistant Organisms: None Reported Past Surgical History: Orthopedic Surgery Additional Past Surgical History / Comment(s): sinus, cataracts, bilateral rotator cuff repair, left knee surgery Past Anesthesia/Blood Transfusion Reactions: No Reported Reaction Additional Past Anesthesia/Blood Transfusion Reaction / Comment(s): slow to wake up and low b/p-son also has same response to anesthesia. no hx blod transfusion. Requests no blood transfusions from covid vaccinated people Smoking Status: Former smoker - Past Family History Brother(s) Family Medical History: Cancer Medications and Allergies Home Medications Medication Instructions Recorded Confirmed Type HYDROcodone/APAP 10-325MG [[place] 0.5 tab PO TID PRN 04/29/16 12/27/23 History 10-325] Ibuprofen [Motrin] 400 mg PO TID PRN 04/29/16 12/27/23 History Omeprazole 20 mg PO QAM 03/10/21 12/27/23 History Triamcinolone Acetonide [Nasacort] 1 spray EA NOSTRIL BID PRN 03/10/21 12/27/23 History Acetaminophen [Tylenol Extra 500 mg PO DAILY PRN 12/27/23 12/27/23 History Strength] Nasal Decongestant 1 dose PO DAILY PRN 12/27/23 12/27/23 History Tamsulosin HCl [Flomax] 0.4 mg PO QAM 12/27/23 12/27/23 History [place] 1 dose PO DAILY 12/27/23 12/27/23 History methocarbamoL [Robaxin] 500 mg PO BID PRN 12/27/23 12/27/23 History tadalafiL [Cialis] 10 mg PO DAILY PRN 12/27/23 12/27/23 History Allergies Allergy/AdvReac Type Severity Reaction Status Date / Time No Known Allergies Allergy Verified 12/27/23 09:42 Surgical - Exam Physical exam: General: Well-developed, well-nourished HEENT: Normocephalic, sclerae nonicteric Abdomen: Nontender, nondistended, bilateral inguinal hernia left greater than right Extremities: No edema Neuro: Alert and oriented Assessment and Plan (1) Bilateral inguinal hernia Narrative/Plan: 68-year-old male with bilateral inguinal hernia. Will proceed with laparoscopic da Carl[place] assisted repair bilateral inguinal hernia with mesh, possible open. Risks of bleeding, infection, recurrence, bladder and bowel injury, numbness, nerve injury, conversion to an open procedure were discussed with the patient. The patient understands and wishes to proceed. Current Visit: Yes Status: Acute Code(s): K40.20 - BI INGUINAL HERNIA, W/O OBST OR GANGRENE, NOT SPCF RECUR SNOMED Code(s): 34503441
[2024-01-01] MEDS: LACTATED RINGERS 1,000 ML IV SCH (08:15)
[2024-01-01] MEDS: ACETAMINOPHEN TAB 500 MG TAB PO PRN (08:15)
[2024-01-01] MEDS: ONDANSETRON 4 MG/2 ML VIAL IVP ONE (08:18)
[2024-01-01 08:26] LABS: Glucose,Whole Blood 113 mg/dL (70-110)
[2024-01-01] MEDS: MIDAZOLAM 2 MG/2 ML VIAL IVP ONE (08:28)
[2024-01-01] MEDS: DEXAMETHASONE SOD PHOSPHATE 4 MG/ML 1 ML VIAL IV ONE (08:31)
[2024-01-01] MEDS: HEPARIN SODIUM,PORCINE 5,000 UNIT/ML 1 ML VIAL SQ PRN (08:44)
--- NOTE | 2024-01-01 08:44 | P.ANPRN ---
Procedure Note - Anesthesia - Nerve Block Performed Bilateral Transversus Abdominis Single Time Out Performed: Yes Date of Procedure: 01/01/24 Procedure Start Time: : Procedure Stop Time: :33 Location of Patient: PreOp Indication: Acute Post-Operative Pain, Analgesia, Requested by Surgeon Sedation Type: Sedate with meaningful contact maintained Preparation: Sterile Prep Position: Supine Catheter: None Needle Types: Pajunk Needle Gauge: 21 Ultrasound used to visualize needle placement: Yes Ultrasound used to observe medication spread: Yes Injectate: 0.5% Ropivacaine (see comment for volume) (Ropiv 20 ml + decadron 4 mg-- Each side . AttemptX1) Blood Aspirated: No Pain Paresthesia on Injection Noted: No Resistance on Injection: Normal Image Stored and Saved: Yes Events: Uneventful and Well Tolerated
[2024-01-01] MEDS: TAMSULOSIN 0.4 MG CAP.ER.24H PO ONE (09:39)
[2024-01-01] MEDS ORDERED: NEOSTIGMINE 1 MG/ML 10 ML VIAL ONE (10:13)
[2024-01-01] MEDS ORDERED: ROCURONIUM 10 MG/ML (5 ML VIAL) IV ONE (10:13)
[2024-01-01] MEDS ORDERED: ROPIVACAINE 5 MG/ML 30 ML VIAL ONE (10:13)
[2024-01-01] MEDS ORDERED: KETOROLAC 15 MG/ML 1 ML VIAL ONE (10:13)
[2024-01-01] MEDS ORDERED: fentaNYL (PF) 50 MCG/ML 2 ML AMP ONE (10:13)
[2024-01-01] MEDS ORDERED: DEXAMETHASONE SOD PHOSPHATE 4 MG/ML 1 ML VIAL ONE (10:13)
[2024-01-01] MEDS ORDERED: PROPOFOL 10 MG/ML 20 ML VIAL IV ONE (10:13)
[2024-01-01] MEDS ORDERED: SUCCINYLCHOLINE CHLORIDE 200 MG/10 ML VIAL IV ONE (10:13)
[2024-01-01] MEDS ORDERED: LIDOCAINE 1% INJ 10MG/ML (20 ML MDV) ONE (10:13)
[2024-01-01] MEDS ORDERED: GLYCOPYRROLATE 0.2 MG/ML 2 ML VIAL ONE (10:13)
[2024-01-01] MEDS: BUPIVACAINE (PF) 0.25% 30 ML VIAL SQ ONE (10:15)
[2024-01-01] MEDS: LACTATED RINGERS 1,000 ML IV ONE (12:45)
--- NOTE | 2024-01-01 12:56 | P.OP ---
Date of Procedure: 01/01/24 Procedure(s) Performed: PREOPERATIVE DIAGNOSIS: Bilateral inguinal hernia POSTOPERATIVE DIAGNOSIS: Same PROCEDURE: Laparoscopic da Carlota assisted repair bilateral inguinal hernia, excision bilateral cord lipoma SURGEON: Dr. Roa ANESTHESIA: General OPERATIVE PROCEDURE DETAILS: Patient was placed in the operating table in the supine position. The patient was placed under general anesthesia. The abdomen was prepped and draped in usual sterile fashion. A small curvilinear supraumbilical incision was made. The fascia was retracted anteriorly with Donnellson forceps. The Veress needle was inserted. The saline drop test was normal. Insufflation took place to 15 mmHg. An 8 mm trocar was placed into the peritoneal cavity. 2 additional 8 mm trochars were placed in the right upper quadrant and left upper quadrant under visualization. The robotic arms were then brought in and docked into place. The fenestrated bipolar was used in the left arm and the laparoscopic ashtyn was utilized in the right arm. A 30 8 mm scope was used in the up position. The peritoneal cavity was inspected. The patient had a moderate sized left indirect inguinal hernia as well as a smaller right indirect inguinal hernia. A incision was created on the peritoneum across the lower abdomen superior to the bladder. The preperitoneal dissection took place bilaterally at that time. The direct hernia on the right-hand side was reduced using blunt dissection. Taz's ligament and the pubic symphysis were well-visualized. Dissection on the left-hand side of the indirect hernia sac then took place without difficulty as well. The patient had a large retroperitoneal lipoma extending into the inguinal canal through the internal inguinal ring on the left-hand side and a slightly smaller 1 on the right-hand side. These cord lipomas were excised using electrocautery. These were later removed with an Endo Catch bag. Once we had full dissection in both sacs fully reduced 2 separate 15 x 10 mm Progrip mesh were placed within the abdomen crossing one another in the midline. These were then sutured to the Taz's ligament across the pubic symphysis to the opposite side using a running 30 absorbable V lock suture. The same stitch was then brought to the midline and the mesh was sutured to the abdominal wall in the midline superiorly. This covered all hernia spaces nicely. The peritoneal defect was then closed bilaterally using a absorbable 2-0 VLok suture. The hernia sacs were incorporated into the peritoneal closure to help prevent future recurrence. The pneumoperitoneum was then evacuated. The skin of all 3 sites was closed using a 4-0 Monocryl stitch. Skin glue was then applied. TYPE OF MESH USED: Progrip 15 x 10 LOCATION OF MESH: Preperitoneal/sub-lay FIXATION: Absorbable 30V lock PREOPERATIVE DISCUSSION ON SMOKING CESSASTION: Yes PREOPERATIVE DISCUSSION ON MORBID OBESITY: Yes PREOPERATIVE DISCUSSION ON APPROPRIATE USE OF NARCOTIC USE: Yes PREOPERATIVE EDUCATION: Multi Modal, Smoking Cessation and Weight Loss with BMI over 35. DISPOSITION: Stable to recovery room
[2024-01-01] MEDS ORDERED: ACETAMINOPHEN TAB 325 MG TAB PO SCH (13:00)
[2024-01-01] MEDS ORDERED: TAMSULOSIN 0.4 MG CAP.ER.24H PO STA (13:03)
[2024-01-01 13:23] VITALS: TEMP 97
[2024-01-01] MEDS: HYDROmorphone 0.5 MG/0.5 ML SYRINGE IVP PRN (13:51)
[2024-01-01] MEDS ORDERED: HYDROcodone/APAP 5-325MG 1 EACH TAB ONE (15:19)
[2024-01-01] MEDS: HYDROcodone/APAP 5-325MG 1 EACH TAB PO ONE (15:22)
[2024-01-01 15:31] VITALS: RESP 18
[2024-01-01] MEDS ORDERED: IBUPROFEN 600 MG TAB PO SCH (16:00)
[2024-01-01 16:11] VITALS: PULSE 86
[2024-01-01 17:29] VITALS: BP 136/82
== END 2024-01-01 17:20 | disposition home or self-care (01) ==
LOC: OR 07:16
PROVIDERS: ATTEND Surgery
DX: K40.20 Bilateral inguinal hernia, without obstruction or gangrene, not specified as recurrent (principal); D17.6 Benign lipomatous neoplasm of spermatic cord; G89.18 Other acute postprocedural pain; K21.9 Gastro-esophageal reflux disease without esophagitis; M19.90 Unspecified osteoarthritis, unspecified site; F10.90 Alcohol use, unspecified, uncomplicated; Z87.891 Personal history of nicotine dependence; Z79.899 Other long term (current) drug therapy
CPT/HCPCS: 49650; 64488; J2250; J1644; J1100; J0690; J2405; J1170; J0665; 88304

== ENCOUNTER 2024-01-02 00:12 | Emergency (ER) | payer MEDICARE ==
[2024-01-02 00:33] VITALS: TEMP 97.7
--- NOTE | 2024-01-02 00:51 | ED ---
General Adult HPI - General Chief complaint: Urogenital Stated complaint: Unable to urinate Time Seen by Provider: 01/02/24 00:21 Source: patient Mode of arrival: wheelchair Limitations: no limitations - History of Present Illness Initial comments: 68-year-old male who had hernia surgery with Dr. Roa today presenting to the ED with complaints of difficulty urinating. Patient reports that he was "rushed out" of the hospital. States that doctor Crispin instructed the patient not to leave until he was able to urinate however reports that the nurses laced a straight cath and him and let him home. Patient reports since then has been unable to urinate. Does note some associated lower abdominal pain with this. No fever or chills. No chest pain or shortness of breath. Upon gathering history while in the room bladder scan showed greater than 500 cc of urine. - Related Data Home Medications Medication Instructions Recorded Confirmed HYDROcodone/APAP 10-325MG [[place] 0.5 tab PO TID PRN 04/29/16 01/01/24 10-325] Ibuprofen [Motrin] 400 mg PO TID PRN 04/29/16 01/01/24 Omeprazole 20 mg PO QAM 03/10/21 01/01/24 Triamcinolone Acetonide [Nasacort] 1 spray EA NOSTRIL BID PRN 03/10/21 01/01/24 Acetaminophen [Tylenol Extra 325 mg PO DAILY PRN 12/27/23 01/01/24 Strength] Nasal Decongestant 1 dose PO DAILY PRN 12/27/23 01/01/24 Tamsulosin HCl [Flomax] 0.4 mg PO QAM 12/27/23 01/01/24 Tapee Tea 1 dose PO DAILY 12/27/23 01/01/24 methocarbamoL [Robaxin] 500 mg PO BID PRN 12/27/23 01/01/24 tadalafiL [Cialis] 10 mg PO DAILY PRN 12/27/23 01/01/24 Allergies Allergy/AdvReac Type Severity Reaction Status Date / Time No Known Allergies Allergy Verified 01/01/24 07:41 Review of Systems ROS Statement: Those systems with pertinent positive or pertinent negative responses have been documented in the HPI. ROS Other: All systems not noted in ROS Statement are negative. Past Medical History Past Medical History: No Reported History Additional Past Medical History / Comment(s): back pain History of Any Multi-Drug Resistant Organisms: None Reported Past Surgical History: Hernia Repair, Orthopedic Surgery Additional Past Surgical History / Comment(s): sinus, cataracts, bilateral rotator cuff repair, left knee surgery, hernia repair Past Anesthesia/Blood Transfusion Reactions: No Reported Reaction Additional Past Anesthesia/Blood Transfusion Reaction / Comment(s): slow to wake up Past Psychological History: No Psychological Hx Reported Smoking Status: Never smoker Past Alcohol Use History: Daily Past Drug Use History: None Reported - Past Family History Brother(s) Family Medical History: Cancer General Exam Limitations: no limitations General appearance: alert, in no apparent distress Eye exam: Present: normal appearance Neck exam: Present: normal inspection Respiratory exam: Present: normal lung sounds bilaterally Cardiovascular Exam: Present: regular rate GI/Abdominal exam: Present: distended (Distention in the suprapubic region with tenderness to palpation. Bowel sounds active) Neurological exam: Present: alert, oriented X3 Skin exam: Present: warm, dry Course Vital Signs 01/02/24 00:15 Temperature 97.7 F Pulse Rate 97 Respiratory 18 Rate Blood Pressure 186/98 O2 Sat by Pulse 97 Oximetry Medical Decision Making - Medical Decision Making Was pt. sent in by a medical professional or institution (, PA, GIS MAPPING TECHNICIAN, urgent care, hospital, or [facility]...) When possible be specific @ -No Did you speak to anyone other than the patient for history (EMS, parent, family, police, friend...)? What history was obtained from this source @ -No Did you review nursing and triage notes (agree or disagree)? Why? @ -I reviewed and agree with nursing and triage notes Were old charts reviewed (outside hosp., previous admission, EMS record, old EKG, old radiological studies, urgent care reports/EKG's, [facility] records)? Report findings @ -No old charts were reviewed Differential Diagnosis (chest pain, altered mental status, abdominal pain women, abdominal pain men, vaginal bleeding, weakness, fever, dyspnea, syncope, headache, dizziness, GI bleed, back pain, seizure, CVA, palpatations, mental health, musculoskeletal)? @ -Differential Abdominal Pain Men: Appendicitis, cholecystitis, diverticulosis, ischemic bowel, pancreatitis, hepatitis, UTI, gastroenteritis, AAA, incarcerated hernia, bowel obstruction, constipation, inflammatory bowel, hepatitis, peptic ulcer disease, splenic infarction, perforated viscus, testicular torsion, this is not meant to be an all-inclusive list EKG interpreted by me (3pts min.). @ -None X-rays interpreted by me (1pt min.). @ -None done CT interpreted by me (1pt min.). @ -None done U/S interpreted by me (1pt. min.). @ -None done What testing was considered but not performed or refused? (CT, X-rays, U/S, labs)? Why? @ -None What meds were considered but not given or refused? Why? @ -None Did you discuss the management of the patient with other professionals (professionals i.e. DrVeronica, PA, GIS MAPPING TECHNICIAN, lab, RT, psych nurse, social scientist, sanding machine buffer, teacher, protection officer, case repairer)? Give summary @ -No Was smoking cessation discussed for >3mins.? @ -No Was critical care preformed (if so, how long)? @ -No Were there social determinants of health that impacted care today? How? ([place] elessness, low income, unemployed, alcoholism, drug addiction, transportation, low edu. Level, literacy, decrease access to med. care, shelter, rehab)? @ -No Was there de-escalation of care discussed even if they declined (Discuss DNR or withdrawal of care, Hospice)? DNR status @ -No What co-morbidities impacted this encounter? (DM, HTN, Smoking, COPD, CAD, Cancer, CVA, ARF, Chemo, Hep., AIDS, mental health diagnosis, sleep apnea, morbid obesity)? @ -None Was patient admitted / discharged? Hospital course, mention meds given and route, prescriptions, significant lab abnormalities, going to OR and other pertinent info. @ -Discharge 68-year-old male presenting to the ED with complaints of urinary retention. Had hernia surgery performed by Dr. Roa today. Bladder scan showed greater than 500 cc. Wood catheter was placed. UA was obtained which was unremarkable. Discharged home in stable condition with instructions to follow-up with urology. Discussed return precautions with family who verbalized agreement. Undiagnosed new problem with uncertain prognosis? @ -No Drug Therapy requiring intensive monitoring for toxicity (Heparin, Nitro, Insulin, Cardizem)? @ -No Were any procedures done? @ -No Diagnosis/symptom? @ -Urinary retention Acute, or Chronic, or Acute on Chronic? @ -Acute Uncomplicated (without systemic symptoms) or Complicated (systemic symptoms)? @ -Uncomplicated Side effects of treatment? @ -No Exacerbation, Progression, or Severe Exacerbation? @ -No Poses a threat to life or bodily function? How? (Chest pain, [place], [place], pneumonia, PE, COPD, DKA, ARF, appy, cholecystitis, CVA, Diverticulitis, Homicidal, Suicidal, threat to staff... and all critical care pts) @ -No - Lab Data Lab Results 01/02/24 Range/Units 01:35 Urine Color Colorless Urine Appearance Clear (Clear) Urine pH 6.5 (5.0-8.0) Ur Specific [place] 1.014 (1.001-1.035) Urine Protein Negative (Negative) Urine Glucose (UA) Negative (Negative) Urine Ketones Negative (Negative) Urine Blood Negative (Negative) Urine Nitrite Negative (Negative) Urine Bilirubin Negative (Negative) Urine Urobilinogen <2.0 (<2.0) mg/dL Ur Leukocyte Esterase Negative (Negative) Disposition Clinical Impression: Urinary retention Disposition: HOME SELF-CARE Condition: Good Additional Instructions: Please return to the Emergency Department if symptoms worsen or any other concerns. Please follow-up with urology. Monitor for signs of urinary tract infection. Follow-up with Dr. Roa as scheduled. Prescriptions: polyethylene glycoL 3350 [Miralax] 17 gm PO DAILY #527 gm Is patient prescribed a controlled substance at d/c from ED?: No Referrals: Desean Reeves Jr, DO [Primary Care Provider] - 1-2 days Time of Disposition: 02:15
[2024-01-02 01:52] LABS: Appearance,Urine Clear (Clear); Bilirubin,Urine Negative (Negative); Blood,Urine Negative (Negative); Color,Urine Colorless; Glucose,Urine (UA) Negative (Negative); Ketones,Urine Negative (Negative); Leukocyte Esterase,Urine Negative (Negative); Nitrite,Urine Negative (Negative); PH, Urine 6.5 (5.0-8.0); Protein,Urine Negative (Negative); Specific Gravity,Urine 1.014 (1.001-1.035); Urobilinogen,Urine <2.0 mg/dL (<2.0)
[2024-01-02 03:54] VITALS: BP 154/86; PULSE 77; RESP 16
== END 2024-01-02 04:00 | disposition home or self-care (01) ==
LOC: EC 00:12
DX: R33.9 Retention of urine, unspecified (principal)
CPT/HCPCS: 51702; 51798; 81003; 99283; 99284

== ENCOUNTER 2024-09-26 12:29 | Day surgery (SDC) | payer MEDICARE ==
[2024-09-20 13:16] VITALS: BMI 25.7
[~2024-09-26 12:29] MED LIST changes: +LACTATED RINGERS 1,000 ML IV SCH; -droPERidol 5 MG/2 ML VIAL IVP ONE
[2024-09-26 12:52] VITALS: TEMP 98.1
[2024-09-26] MEDS: IV FLUID CONTINUATION 1,000 ML IV ONE (12:57)
[2024-09-26] MEDS ORDERED: LIDOCAINE 2% (PF) 20 MG/ML 5 ML VIAL ONE (13:24)
[2024-09-26] MEDS ORDERED: PROPOFOL 10 MG/ML 20 ML VIAL IV ONE (13:24)
--- NOTE | 2024-09-26 13:33 | P.GSHP ---
History of Present Illness H&P Date: 09/26/24 Chief Complaint: GERD, screening 68-year-old male here for colonoscopy. Patient with history of colon polyps. No family history of colon cancer. Patient also with chronic history of GERD symptoms. Takes daily antiacids. No dysphagia. When he arrived today we discussed the options of EGD and he would like to proceed with that as well. Past Medical History Past Medical History: GERD/Reflux Additional Past Medical History / Comment(s): back pain, sciatica History of Any Multi-Drug Resistant Organisms: None Reported Past Surgical History: Hernia Repair, Orthopedic Surgery Additional Past Surgical History / Comment(s): sinus, cataracts, bilateral rotator cuff repair, left knee surgery, hernia repair, colonoscopy , egd Past Anesthesia/Blood Transfusion Reactions: No Reported Reaction Additional Past Anesthesia/Blood Transfusion Reaction / Comment(s): slow to wake up, no blood transfusion Smoking Status: Never smoker - Past Family History Brother(s) Family Medical History: Cancer Medications and Allergies Home Medications Medication Instructions Recorded Confirmed Type HYDROcodone/APAP 10-325MG [[place] 0.5 tab PO TID PRN 04/29/16 09/26/24 History 10-325] Ibuprofen [Motrin] 400 mg PO TID PRN 04/29/16 09/26/24 History Omeprazole 20 mg PO QAM 03/10/21 09/26/24 History Triamcinolone Acetonide [Nasacort] 1 spray EA NOSTRIL BID PRN 03/10/21 09/26/24 History Acetaminophen [Tylenol Extra 325 mg PO DAILY PRN 12/27/23 09/26/24 History Strength] Nasal Decongestant 1 dose PO DAILY PRN 12/27/23 09/26/24 History Tamsulosin HCl [Flomax] 0.4 mg PO BID 12/27/23 09/26/24 History Tapee Tea 1 dose PO DAILY 12/27/23 09/26/24 History methocarbamoL [Robaxin] 500 mg PO BID PRN 12/27/23 09/26/24 History tadalafiL [Cialis] 10 mg PO DAILY PRN 12/27/23 09/26/24 History Allergies Allergy/AdvReac Type Severity Reaction Status Date / Time No Known Allergies Allergy Verified 09/26/24 12:36 Surgical - Exam Vital Signs Temp Pulse Resp BP Pulse Ox 98.1 F 90 18 153/95 97 09/26/24 12:46 09/26/24 12:46 09/26/24 12:46 09/26/24 12:46 09/26/24 12:46 Physical exam: General: Well-developed, well-nourished HEENT: Normocephalic, sclerae nonicteric Abdomen: Nontender, nondistended Extremities: No edema Neuro: Alert and oriented Assessment and Plan (1) GERD (gastroesophageal reflux disease) Narrative/Plan: Will proceed with upper and lower endoscopy Current Visit: Yes Status: Acute Code(s): K21.9 - GASTRO-ESOPHAGEAL REFLUX DISEASE WITHOUT ESOPHAGITIS SNOMED Code(s): 150080381
--- NOTE | 2024-09-26 14:07 | P.PCN ---
Date of Procedure: 09/26/24 Procedure(s) Performed: PREOPERATIVE DIAGNOSIS: GERD, screening POSTOPERATIVE DIAGNOSIS: Gastritis, hiatal hernia, distal esophagitis, colon polyps, diverticulosis PROCEDURE: 1. EGD with biopsy 2. Colonoscopy with biopsy and snare polypectomy ANESTHESIA: MAC SURGEON: Rian Roa M.D. SPECIMENS: Antrum, GE junction, cecal polyp, hepatic flexure polyp, sigmoid polyp ENDOSCOPIC PROCEDURE: The patient was on the endoscopy table in the left decubitus position. The Olympus gastroscope was inserted into the oropharynx and passed under direct visualization to the region of the third portion of the duodenum. From that point the scope was slowly withdrawn inspecting all surfaces carefully. There were no neoplastic inflammatory or polypoid lesions throughout the duodenum. The pylorus was widely patent. The stomach was carefully inspected. There was mild diffuse inflammatory changes present with some scarring in the antrum suggestive of previous ulcer disease. A biopsy of the antrum took place to rule out H. pylori. Retroflexion revealed a 2 cm hiatal hernia. At the GE junction there was mild inflammatory changes present and biopsies were taken. The remainder the esophagus appeared normal. Inflammation at the GE junction was noncircumferential and less than 1 cm in size. The patient was kept on the endoscopy table in the left decubitus position. The Olympus colonoscope was inserted into the anus and passed under direct visualization to the base of the cecum. The appendiceal orifice was visualized. From that point the scope was slowly withdrawn inspecting all surfaces carefully. There was a sessile polyp across from the ileocecal valve measuring approximately 2 to 3 cm in diameter. This was not amenable to polypectomy given its angulation and size. Biopsies were taken. This did not appear frankly malignant. Ascending colon appeared normal. At the hepatic flexure there were 2 small polyps removed using the snare with cautery technique. The transverse colon and descending colon appeared normal. In the distal sigmoid colon an additional polyp was noted and removed using the snare with cautery technique. Patient had mild left-sided diverticulosis as well. Digital rectal examination was normal. The patient was taken to the recovery room in stable condition per anesthesia guidelines. RECOMMENDATIONS: Await biopsy results. Anticipate adenomatous tissue at cecal polyp. If that is the case we will refer to advanced endoscopy for endoscopic resection. Continue antiacid therapy.
[2024-09-26 14:25] VITALS: BP 124/78; PULSE 78; RESP 18
== END 2024-09-26 15:16 | disposition home or self-care (01) ==
LOC: ORWHC2ENDO 12:29
PROVIDERS: ATTEND Surgery
DX: Z12.11 Encounter for screening for malignant neoplasm of colon (principal); D12.0 Benign neoplasm of cecum; D12.3 Benign neoplasm of transverse colon; K63.5 Polyp of colon; K57.30 Diverticulosis of large intestine without perforation or abscess without bleeding; K29.50 Unspecified chronic gastritis without bleeding; K21.00 Gastro-esophageal reflux disease with esophagitis, without bleeding; K44.9 Diaphragmatic hernia without obstruction or gangrene; Z79.899 Other long term (current) drug therapy; Z86.0100 Personal history of colon polyps, unspecified
CPT/HCPCS: 88305; 45380; 45385; 43239; J2704; J2003